=== PATIENT | male | born 1995 | race Caucasian/White ===

== ENCOUNTER 2023-05-29 20:14 | Emergency (ER) | payer OTHER ==
[~2023-05-29] VITALS: Ht 180.3 cm; Wt 86.2 kg
[2023-05-29 20:48] LABS: BILIRUBIN, URINE NEGATIVE (negative); BLOOD/HGB, URINE MODERATE (Negative); KETONE, URINE NEGATIVE (Negative); LEUK ESTERASE, URINE NEGATIVE (negative); NITRITE, URINE NEGATIVE (negative)
[2023-05-29 20:53] LABS: EPITHELIAL CELLS, URINE SQUAMOUS 1+ /lpf (0-1+); RED BLOOD CELLS, URINE 21-40 /hpf (0-5); WHITE BLOOD CELLS, URINE 0-1 /HPF (0-5)
[2023-05-29 20:54] LABS: REFLEX CULTURE, URINE No (No)
[2023-05-29 20:57] LABS: BASOPHILS 0.2 % (0-2); EOSINOPHILS 1.2 % (0-6); HEMATOCRIT 47.8 % (35.0-50.0); HEMOGLOBIN 16.5 g/dL (12.0-18.0); LYMPHOCYTES 41.5 % (24-44); MCH 29.3 (27-36); MCHC 34.4 g/dl (30-36); MONOCYTES 8.2 % (0-12); NEUTROPHILS 48.9 % (39-80); PLATELET COUNT 207 K/uL (140-440); RBC 5.62 M/ul (4.3-5.7); RDW 13.1 (10.5-15.0)
[2023-05-29 20:58] LABS: ALBUMIN 4.3 g/dL (3.4-5.0); ALBUMIN/GLOBULIN RATIO 1.05 (1.1-2.4); ANION GAP 10.8 (7-21); BILIRUBIN, TOTAL 0.3 ng/dL (0.2-1.0); BUN/CREATININE RATIO 12.19 (6.0-28.6); CALCIUM 9.5 mg/dL (8.5-10.1); CREATININE, SERUM 1.23 mg/dL (0.70-1.30); POTASSIUM 3.8 mmol/L (3.5-5.1); PROTEIN, TOTAL 8.4 g/dL (6.4-8.2)
[2023-05-29] MEDS ORDERED: FLOMAX0.4 MG PO (21:23)
[2023-05-29] MEDS ORDERED: KETOROLAC TROME10 MG PO (21:23)
[2023-05-29 21:35] VITALS: BP 134/87
== END 2023-05-29 21:36 | disposition home or self-care (01) ==
LOC: ED 20:14
PROVIDERS: Internal Medicine
DX: N13.2 Hydronephrosis with renal and ureteral calculous obstruction (principal)
CPT/HCPCS: 36415; 74176; 80053; 81001; 83690; 85025; 85060; 96374; 99284-25; A9270; J1885; J7121